=== PATIENT | female | born 1965 | race Caucasian/White ===

== ENCOUNTER 2018-07-14 16:41 | Emergency (ER) | payer OTHER ==
[~2018-07-14] VITALS: Ht 152.4 cm; Wt 66.0 kg
[2018-07-14 17:11] LABS: BASOPHILS % (AUTO) 0.3 % (0-1); EOSINOPHILS # (AUTO) 0.1 X10'3 (0-0.9); EOSINOPHILS % (AUTO) 0.8 % (0-6); HEMATOCRIT 44.5 % (35.0-45.0); LYMPHOCYTES # (AUTO) 1.2 X10'3 (1.1-4.8); LYMPHOCYTES % (AUTO) 18.9 % (21-51); MEAN CORPUSCULAR HEMOGLOBIN 31.4 PG (27.0-31.0); MEAN CORPUSCULAR HGB CONC 33.7 g/dL (33.0-36.5); MEAN CORPUSCULAR VOLUME 93.1 FL (78-98); MEAN PLATELET VOLUME 6.8 FL (7.4-10.4); MONOCYTES # (AUTO) 0.5 X10'3 (0-0.9); MONOCYTES % (AUTO) 7.2 % (2-12); NEUTROPHILS # (AUTO) 4.7 X10'3 (1.8-7.7); NEUTROPHILS % (AUTO) 72.8 % (42-75); PLATELET COUNT 295 X10'3 (140-440); RED BLOOD COUNT 4.78 X10'6 (4.20-5.60); RED CELL DISTRIBUTION WIDTH 12.7 % (11.5-14.5); WHITE BLOOD COUNT 6.5 X10'3 (4.5-11.0)
[2018-07-14 17:27] LABS: PARTIAL THROMBOPLASTIN TIME 29 SECONDS (22-32); PROTHROMBIN TIME 9.7 SECONDS (9.0-12.0)
[2018-07-14 17:40] LABS: ALANINE AMINOTRANSFERASE 26 U/L (12-78); ALBUMIN 3.7 G/DL (3.4-5.0); ALBUMIN/GLOBULIN RATIO 0.8 (1.1-1.5); ALKALINE PHOSPHATASE 112 IU/L (46-116); ANION GAP 12 (8-16); ASPARTATE AMINO TRANSFERASE 34 U/L (10-37); BILIRUBIN,TOTAL 0.6 MG/DL (0.1-1.0); BLOOD UREA NITROGEN 15 MG/DL (7-18); BUN/CREATININE RATIO 23.8 (6.6-38.0); CHLORIDE 100 MMOL/L (99-107); CREATININE 0.63 MG/DL (0.40-0.90); GLUCOSE 74 MG/DL (70-104); POTASSIUM 3.8 MMOL/L (3.5-5.1); SODIUM 138 MMOL/L (135-145); TOTAL CARBON DIOXIDE 26.3 MMOL/L (24-32); TOTAL PROTEIN 8.1 G/DL (6.4-8.2); eGFR > 90 ML/MIN
[2018-07-14] MEDS ORDERED: LORazepam 1 MG tablet PO ONE (18:00)
[2018-07-14] MEDS ORDERED: LORA1TAB PO (18:00)
[2018-07-14 18:28] VITALS: BP 154/75
[2018-07-14] MEDS ORDERED: HYDR-4384 PO (18:29)
[2018-07-14] MEDS ORDERED: LORA0.5T PO (18:58)
== END 2018-07-14 18:07 | disposition home or self-care (01) ==
LOC: ER 16:42
DX: F41.9 Anxiety disorder, unspecified (principal); R07.89 Other chest pain; J45.909 Unspecified asthma, uncomplicated; Z88.0 Allergy status to penicillin; Z88.6 Allergy status to analgesic agent
CPT/HCPCS: 36415; 71045; 80053; 84484; 85025; 85610; 85730; 93005; 99284

== ENCOUNTER 2022-10-26 12:56 | Emergency (ER) | payer BC, OTHER ==
[~2022-10-26] VITALS: Ht 152.4 cm; Wt 65.9 kg
[~2022-10-26 12:56] MED LIST: HYDR-4384 PO
[2022-10-26 12:58] VITALS: BP 120/53
--- NOTE | 2022-10-26 14:52 | NUR ---
Pt moved from ER fast track A to ER rm 12.
--- NOTE | 2022-10-26 15:13 | NUR ---
NEW ORTHO WRAP PLACED FROM OR.
== END 2022-10-26 15:16 | disposition home or self-care (01) ==
LOC: ER 12:57
DX: L76.22 Postprocedural hemorrhage of skin and subcutaneous tissue following other procedure (principal); J45.909 Unspecified asthma, uncomplicated; F41.9 Anxiety disorder, unspecified; Z88.6 Allergy status to analgesic agent; Z79.899 Other long term (current) drug therapy; W19.XXXD Unspecified fall, subsequent encounter
CPT/HCPCS: 99284; A6223; A6258; A6449